=== PATIENT | male | born 1960 | race African-American/Black ===

== ENCOUNTER 2020-04-05 17:32 | Emergency (ER) | payer SELFPAY ==
--- NOTE | 2020-04-05 18:07 | Emergency Department Report ---
ED General Adult HPI - General Chief complaint: Extremity Injury, Lower Stated complaint: RIGHT KNEE INJURY Time Seen by Provider: 04/05/20 18:04 Source: patient Mode of arrival: Ambulatory Limitations: No Limitations - History of Present Illness Initial comments: 59-year-old male patient presents with complaints of bruising to the right knee with mild pain x today and right shoulder pain x3 weeks. He denies any injury to the knee or the shoulder and states the pain in his shoulder occurs mostly at night. Patient also denies any chest pain, shortness of breath, blood thinners, abdominal pain, melena/hematochezia, or hematemesis/coffee-ground emesis. Patient appears intoxicated and admits to drinking alcohol - Related Data Allergies Allergy/AdvReac Type Severity Reaction Status Date / Time No Known Allergies Allergy Unverified 04/05/20 17:42 ED Review of Systems ROS: Stated complaint: RIGHT KNEE INJURY Other details as noted in HPI Constitutional: denies: chills, diaphoresis, fever, malaise, weakness Respiratory: denies: cough, shortness of breath Cardiovascular: denies: chest pain Endocrine: denies: excessive sweating Gastrointestinal: denies: abdominal pain, hematemesis, melena, hematochezia Genitourinary: denies: urgency, dysuria, frequency, hematuria Musculoskeletal: arthralgia. denies: back pain, joint swelling Skin: denies: change in color Neurological: denies: headache Hematological/Lymphatic: denies: swollen glands ED Past Medical Hx - Past Medical History Previous Medical History?: No - Surgical History Past Surgical History?: No ED Physical Exam - General Limitations: No Limitations General appearance: alert, in no apparent distress - Head Head exam: Present: atraumatic, normocephalic - Eye Eye exam: Present: normal appearance. Absent: scleral icterus - Respiratory Respiratory exam: Present: normal lung sounds bilaterally. Absent: respiratory distress - Cardiovascular Cardiovascular Exam: Present: regular rate, normal rhythm. Absent: systolic murmur, diastolic murmur, rubs, gallop - GI/Abdominal GI/Abdominal exam: Present: soft, normal bowel sounds. Absent: distended, tenderness, guarding, rebound, rigid - Extremities Exam Extremities exam: Present: full ROM - Expanded Upper Extremity Exam Right Shoulder Exam: Present: normal inspection, full ROM. Absent: swelling, abrasion, deformity Upper Arm exam: Present: normal inspection, full ROM Elbow exam: Present: normal inspection, tenderness Forearm Wrist exam: Present: normal inspection, full ROM Hand Wrist exam: Present: normal inspection, full ROM Vascular: Absent: vascular compromise - Back Exam Back exam: Present: normal inspection, full ROM - Neurological Exam Neurological exam: Present: alert, oriented X3, normal gait - Psychiatric Psychiatric exam: Present: normal affect - Skin Skin exam: Present: warm, dry, intact, ecchymosis (2 large bruises noted to right medial knee without swelling, erythema or significant tenderness to palpation; patient has full range of motion of the right knee). Absent: rash, cyanosis, erythema ED Course Vital Signs 04/05/20 04/06/20 17:45 01:46 Temperature 97.3 F L Pulse Rate 94 H 83 Respiratory 20 17 Rate Blood Pressure 159/100 Blood Pressure 147/93 [Right] O2 Sat by Pulse 97 100 Oximetry ED Medical Decision Making - Lab Data Result diagrams: 04/05/20 18:34 04/05/20 18:34 - EKG Data EKG shows normal: sinus rhythm Rate: normal - Radiology Data Radiology results: report reviewed RIGHT KNEE 3 VIEWS INDICATION / CLINICAL INFORMATION: pain, no injury COMPARISON: None available. FINDINGS: BONES / JOINT(S): No acute fracture or subluxation. No significant arthritis. SOFT TISSUES: No significant abnormality. ADDITIONAL FINDINGS: None. RIGHT SHOULDER 3 VIEWS INDICATION / CLINICAL INFORMATION: pain, no injury COMPARISON: None available. FINDINGS: BONES / JOINT(S): No acute fracture or subluxation. No significant arthritis. SOFT TISSUES: No significant abnormality. ADDITIONAL FINDINGS: None. CHEST 2 VIEWS INDICATION / CLINICAL INFORMATION: right side pain. COMPARISON: None available. FINDINGS: SUPPORT DEVICES: None. HEART / MEDIASTINUM: No significant abnormality. LUNGS / PLEURA: No significant pulmonary or pleural abnormality. No pneumothorax. ADDITIONAL FINDINGS: No significant additional findings. IMPRESSION: No significant abnormality - Medical Decision Making 59-year-old male patient presents with complaints of bruising to the right knee with mild pain x today and right shoulder pain x3 weeks. He denies any injury to the knee or the shoulder and states the pain in his shoulder occurs mostly at night. Patient also denies any chest pain, shortness of breath, blood thinners, abdominal pain, melena/hematochezia, or hematemesis/coffee-ground emesis. Patient appears intoxicated and admits to drinking alcohol No significant abnormalities noted on x-ray of the shoulder, chest, or knee. Labs are WNL except his blood alcohol level which is noted to be 0.38. Suspect patient's bruising to his right knee is due to a trauma that occurred while intoxicated. Patient allowed to rest in the ED for 8 hours given his blood alcohol level. Blood alcohol level now estimated to be approximately 0.18. Patient is fully alert and aware of person, place, and time and appears able to make conscious decisions. He is stable for discharge. Patient is not driving and was provided with bus pass. Discussed strict return precautions in detail with patient verbalized understanding. Patient also provided with alcohol abuse information along with detox facilities. He denies SI/HI Critical care attestation.: If time is entered above; I have spent that time in minutes in the direct care of this critically ill patient, excluding procedure time. ED Disposition Clinical Impression: Right shoulder pain Qualifiers: Chronicity: acute Qualified Code(s): M25.511 - Pain in right shoulder Traumatic ecchymosis of right knee Qualifiers: Encounter type: initial encounter Qualified Code(s): S80.01XA - Contusion of right knee, initial encounter Disposition: DC- TO HOME OR SELFCARE Is pt being admited?: No Condition: Stable Instructions: Shoulder Pain, Contusion, [id number], Alcohol Use Disorder Referrals: PRIMARY CARE, [Primary Care Provider] - 3-5 Days
--- NOTE | 2020-04-05 18:35 | XRay Report ---
CHEST 2 VIEWS INDICATION / CLINICAL INFORMATION: right side pain. COMPARISON: None available. FINDINGS: SUPPORT DEVICES: None. HEART / MEDIASTINUM: No significant abnormality. LUNGS / PLEURA: No significant pulmonary or pleural abnormality. No pneumothorax. ADDITIONAL FINDINGS: No significant additional findings. IMPRESSION: No significant abnormality Signer Name: Silvio Matias MD FACR Signed: 04/05/2020 6:31 PM Workstation Name: [id number]
--- NOTE | 2020-04-05 18:37 | XRay Report ---
RIGHT KNEE 3 VIEWS INDICATION / CLINICAL INFORMATION: pain, no injury COMPARISON: None available. FINDINGS: BONES / JOINT(S): No acute fracture or subluxation. No significant arthritis. SOFT TISSUES: No significant abnormality. ADDITIONAL FINDINGS: None. Signer Name: Saleem Robles MD Signed: 04/05/2020 6:33 PM Workstation Name: [id number]
--- NOTE | 2020-04-05 18:38 | XRay Report ---
RIGHT SHOULDER 3 VIEWS INDICATION / CLINICAL INFORMATION: pain, no injury COMPARISON: None available. FINDINGS: BONES / JOINT(S): No acute fracture or subluxation. No significant arthritis. SOFT TISSUES: No significant abnormality. ADDITIONAL FINDINGS: None. Signer Name: Saleem Robles MD Signed: 04/05/2020 6:33 PM Workstation Name: [id number]
[2020-04-05 18:57] LABS: Basophils # (Auto) 0.1 K/mm3 (0.0-0.1); Basophils % (Auto) 1.5 % (0.0-1.8); Eosinophils # (Auto) 0.2 K/mm3 (0.0-0.4); Eosinophils % (Auto) 4.2 % (0.0-4.3); Hematocrit 36.9 % (35.5-45.6); Hemoglobin 11.9 gm/dl (11.8-15.2); Lymphocytes # (Auto) 1.4 K/mm3 (1.2-5.4); Mean Corpuscular HGB Conc 32 % (32-34); Mean Corpuscular Volume 77 fl (84-94); Monocytes # (Auto) 0.6 K/mm3 (0.0-0.8); Monocytes % (Auto) 13.3 % (0.0-7.3); Red Blood Count 4.82 M/mm3 (3.65-5.03); Red Cell Distribution Width 16.5 % (13.2-15.2)
[2020-04-05 19:14] LABS: Alanine Aminotransferase 57 units/L (7-56); Albumin 4.3 g/dL (3.9-5); Blood Urea Nitrogen 10 mg/dL (9-20); Calcium 9.4 mg/dL (8.4-10.2); Hemolysis Index 4
[2020-04-05 19:16] LABS: BUN/Creatinine Ratio 14
[2020-04-05 19:47] LABS: INR 1.03 (0.87-1.13)
[2020-04-05 19:48] LABS: Partial Thromboplastin Time 29.3 Sec. (24.2-36.6)
[2020-04-05 20:15] LABS: Platelet Count 78 K/mm3 (140-440)
[2020-04-06 01:53] VITALS: BP 147/93
== END 2020-04-06 01:46 | disposition home or self-care (01) ==
LOC: EDBD → ED 17:32
DX: S80.01XA Contusion of right knee, initial encounter (principal); M25.511 Pain in right shoulder; X58.XXXA Exposure to other specified factors, initial encounter; Y93.89 Activity, other specified; Y92.89 Other specified places as the place of occurrence of the external cause; Y99.8 Other external cause status
CPT/HCPCS: 36415; 71046; 80053; 80320; 84484; 85025; 85610; 85730; 93005; G0480

== ENCOUNTER 2020-08-03 15:05 | Emergency (ER) | payer SELFPAY ==
--- NOTE | 2020-08-03 15:56 | Event Note ---
ED Screening Note Date of service: 08/03/20 Time: 15:54 ED Screening Note: 51-year-old male patient presents to the emergency department complaints of traumatic left ankle pain and swelling starting yesterday. Patient states he was mowing his lawn when he accidentally twisted his ankle. There is no smoking fall, head injury, loss of consciousness. Patient has been weightbearing since the injury occurred. Denies hip pain, knee pain, lower leg pain, foot pain, paresthesias, skin color changes. Denies other complaints at this time. General: Awake, appropriately interactive, no acute distress. Neck: Supple. Full range of motion intact. Cardiovascular: Normal peripheral perfusion. Pulmonary: No respiratory distress. Patient is speaking normally without use of accessory muscles. Skin: No apparent rashes or lesions. Neurological: No facial asymmetry. Speech is clear. Follows commands. Patient is alert and oriented. Musculoskeletal: Significant swelling noted to the left lateral malleolus with overlying tenderness. No plantar ecchymosis. No tenderness of the dorsal surface of the foot. Patient is weightbearing without assistance. Distal neurovascular and motor/sensory function intact. Psych: Cooperative. Appropriate mood and affect. I have greeted and performed a focused rapid initial assessment of this patient. A comprehensive ED assessment and evaluation of the patient, analysis of all test results, and completion of the medical decision-making process will be conducted by additional ED providers. This initial assessment/diagnostic orders/clinical plan/treatment(s) is/are subject to change based on patients health status, clinical progression and re-assessment. Further treatment and workup at subsequent clinical provider's discretion. Patient/guardian urged not to elope from the ED as their condition may be serious if not clinically assessed and managed.
[2020-08-03 15:57] VITALS: BP 141/66
--- NOTE | 2020-08-03 16:37 | XRay Report ---
Left ankle 3 views INDICATION: Twisting injury FINDINGS: Diffuse swelling within the ankle most significant overlying the lateral ankle. There is mi ld irregularity in the distal fibula suggesting avulsion fracture. Talar dome appears intact. Signer Name: Sidney Gutierrez MD Signed: 08/03/2020 4:33 PM Workstation Name: [id number]
--- NOTE | 2020-08-03 17:19 | Emergency Department Report ---
ED General Adult HPI - General Chief complaint: Extremity Injury, Lower Stated complaint: LT ANKLE INJURY Time Seen by Provider: 08/03/20 17:15 Source: patient Mode of arrival: Ambulatory Limitations: Language Barrier - History of Present Illness Initial comments: 51-year-old male patient presents to the emergency department complaints of traumatic left ankle pain and swelling starting yesterday. Patient states he was mowing his lawn when he accidentally twisted his ankle. There is no subsequent fall, head injury, loss of consciousness. Patient has been weightbearing since the injury occurred. Denies hip pain, knee pain, lower leg pain, foot pain, paresthesias, skin color changes. Denies other complaints at this time. - Related Data Previous Rx's Medication Instructions Recorded Last Taken Type Naproxen [Naprosyn] 500 mg PO BID #20 tablet 08/03/20 Unknown Rx Allergies Allergy/AdvReac Type Severity Reaction Status Date / Time No Known Allergies Allergy Verified 08/03/20 15:52 ED Review of Systems ROS: Stated complaint: LT ANKLE INJURY Other details as noted in HPI Other: CARDIOVASCULAR: Negative for chest pain. PULMONARY: Negative for dyspnea. GASTROINTESTINAL: Negative for abdominal pain. MUSCULOSKELETAL: Positive for left ankle pain. NEUROLOGICAL: Negative for headache. INTEGUMENTARY: Negative for ecchymosis. ED Past Medical Hx - Past Medical History Previous Medical History?: No - Surgical History Past Surgical History?: No - Medications Home Medications: Home Medications Medication Instructions Recorded Confirmed Last Taken Type Naproxen [Naprosyn] 500 mg PO BID #20 tablet 08/03/20 Unknown Rx ED Physical Exam - General Limitations: Language Barrier - Other Other exam information: General: Awake, appropriately interactive, no acute distress. Neck: Supple. Full range of motion intact. Cardiovascular: Normal peripheral perfusion. Pulmonary: No respiratory distress. Patient is speaking normally without use of accessory muscles. Skin: No apparent rashes or lesions. Neurological: No facial asymmetry. Speech is clear. Follows commands. Patient is alert and oriented. Musculoskeletal: Significant swelling noted to the left lateral malleolus with overlying tenderness. No plantar ecchymosis. No tenderness of the dorsal surface of the foot. Patient is weightbearing without assistance. Distal neurovascular and motor/sensory function intact. Psych: Cooperative. Appropriate mood and affect. ED Course Vital Signs 08/03/20 15:56 Temperature 98.6 F Pulse Rate 79 Respiratory 18 Rate Blood Pressure 141/66 O2 Sat by Pulse 100 Oximetry ED Medical Decision Making - Radiology Data Accession No. 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 Sex / Age M / 59Y Rn Review BO GUTIERREZ Institution [facility] Approval Date 2020-08-03 16:39:42 Other Patient ID My Comment(s) Study Comments [facility] [address] [place] [address] XRay Report Signed Patient: MALACHI REYES MR#: [id number] : 1960 Acct:[id number] Age/Sex: 59 / M ADM Date: 08/03/20 Loc: ED Attending Dr: Ordering Physician: ANDER ARRIETA Date of Service: 08/03/20 Procedure(s): XR ankle 3+V LT Accession Number(s): [id number] cc: ANDER ARRIETA Fluoro Time In Minutes: Left ankle 3 views INDICATION: Twisting injury FINDINGS: Diffuse swelling within the ankle most significant overlying the lateral ankle. There is mild irregularity in the distal fibula suggesting avulsion fracture. Talar dome appears intact. Signer Name: Sidney Gutierrez MD Signed: 08/03/2020 4:33 PM Workstation Name: [id number] Transcribed By: CW Dictated By: BO GUTIERREZ MD Electronically Authenticated By: BO GUTIERREZ MD Signed Date/Time: 08/03/20 1633 DD/ 1632 TD/TT: - Medical Decision Making Differential diagnosis including but not limited to: sprain, strain, fracture, contusion, dislocation On reevaluation, patient remains stable. Repeat neurovascular exam remains intact. X-ray shows evidence of nondisplaced avulsion fracture of the distal left fibula. Patient will be placed in a posterior ankle splint, provided with crutches and appropriate analgesics, and referred to orthopedics for close outpatient follow-up. Patient expressed understanding and is agreeable to plan of care. RICE precautions discussed. Strict return precautions provided. Repeat exam is unremarkable and benign. History, exam, diagnostic testing, and current condition do not suggest worrisome pathology to warrant further testing, continued ED treatment, admission, or surgical evaluation at this point. Given the low probability of a significant medical illness, it would be more likely to result in harm than benefit to perform further testing at this stage. Discussed findings, presumptive diagnosis, need for follow-up and specific signs/symptoms that should prompt immediate return to the emergency department. Instructions were explained in detail to the patient in addition to giving written discharge information. Patient expressed understanding and was given the opportunity to ask questions, all of which were satisfactorily answered prior to discharge home. Critical care attestation.: If time is entered above; I have spent that time in minutes in the direct care of this critically ill patient, excluding procedure time. ED Disposition Clinical Impression: Avulsion fracture of distal end of fibula Disposition: TO HOME OR SELFCARE Is pt being admited?: No Does the pt Need Aspirin: No Condition: Stable Instructions: Nondisplaced Fibular Ankle Fracture Treated With Immobilization, Adult Additional Instructions: Take Tylenol every 4 hours as needed for pain. Take Naprosyn twice daily with food as needed for pain. Wear splint as directed. Use crutches as needed. Follow-up with Dr. Little, orthopedics, within 1 week. Call tomorrow to schedule an appointment. Return to the emergency department immediately for new or worsening symptoms. Prescriptions: Naproxen [Naprosyn] 500 mg PO BID #20 tablet Referrals: LIANNE LITTLE MD [Staff Physician] - 3-5 Days Time of Disposition: 17:19
== END 2020-08-03 19:10 | disposition home or self-care (01) ==
LOC: ED 15:05
DX: S82.832A Other fracture of upper and lower end of left fibula, initial encounter for closed fracture (principal); Z79.899 Other long term (current) drug therapy; X50.1XXA Overexertion from prolonged static or awkward postures, initial encounter; Y93.89 Activity, other specified; Y92.89 Other specified places as the place of occurrence of the external cause; Y99.8 Other external cause status
CPT/HCPCS: 99283